=== PATIENT | male | born 1985 | race Caucasian/White ===

== ENCOUNTER → 2017-11-12 01:34 | Outpatient (CLI) | payer BC, SELFPAY ==
--- NOTE | 2017-11-12 08:00 | HOLTER_ITS ---
DATE OF STUDY: NOVEMBER 12, 2017 DATE OF DICTATION: NOVEMBER 18, 2017 HOLTER REPORT INDICATIONS: Bradycardia FINDINGS: The patient was monitored for one day and three minutes. The baseline rhythm was sinus rhythm. Average heart rate 67 beats per minute, range 35 to 161 beats per minute. There was no significant ectopy, 2 PVCs and 5 PACs. There were 15 atrial runs. Some of these runs actually represent sinus tachycardia. There was no ventricular tachycardia. Bradycardia occurred mainly at night. There were no pauses greater than 3 seconds. There was no higher degree heart block. There were no symptoms reported. INTERPRETATION: Minor arrhythmias, asymptomatic.
== END ==
PROVIDERS: PCP Nurse Practitioner; Visit Provider Nurse Practitioner
DX: R00.1 Bradycardia, unspecified (principal); R00.0 Tachycardia, unspecified; I49.1 Atrial premature depolarization; I49.3 Ventricular premature depolarization
CPT/HCPCS: 93225

== ENCOUNTER → 2017-11-16 08:11 | Outpatient (REF) | payer BC, SELFPAY | LOC: RT 08:11 | PROVIDERS: PCP Nurse Practitioner; Visit Provider Nurse Practitioner | DX: R00.1 Bradycardia, unspecified (principal); R00.0 Tachycardia, unspecified; I49.1 Atrial premature depolarization; I49.3 Ventricular premature depolarization | CPT/HCPCS: 93226 ==

== ENCOUNTER 2021-01-22 09:13 | Outpatient (REF) | payer OTHER, SELFPAY ==
[2021-01-22 15:39] LABS: ALT 63 U/L (16-63); AST 24 U/L (15-37); Calculated LDL 81 mg/dL (<100); Cholesterol 163 mg/dL (<200); HDL Cholesterol 34 mg/dL (40-60); Triglyceride 244 mg/dL (<150)
== END 2021-01-22 09:14 | disposition home or self-care (01) ==
LOC: NCHCN 09:13
PROVIDERS: PCP Nurse Practitioner; Visit Provider Nurse Practitioner Family
DX: R03.0 Elevated blood-pressure reading, without diagnosis of hypertension (principal); R00.1 Bradycardia, unspecified; E66.9 Obesity, unspecified
CPT/HCPCS: 80061; 84450; 84460

== ENCOUNTER 2021-10-21 17:39 | Outpatient (REF) | payer BC, SELFPAY ==
[2021-10-21 19:46] LABS: Abs Immature Grans 0.03 10^3/uL (0.0-0.06); Absolute Basophil Count 0.03 10^3/uL (0.0-0.2); Absolute Lymphocyte Count 2.37 10^3/uL (1.2-3.4); Absolute Monocyte Count 0.41 10^3/uL (0.1-0.8); Basophils % 0.5; Eosinophils % 1.6; HCT 46.2 % (40.0-50.0); HGB 15.8 g/dL (13.5-17.5); Immature Grans % 0.5; Lymphocytes % 36.8; MCH 27.5 pg (27.0-33.0); MCHC 34.2 % (32.0-36.0); MCV 81 fL (80-95); MPV 9.7 fL (8.0-11.0); Monocytes % 6.4; Neutrophils % 54.2; Platelet Count 316 10^3/uL (130-400); RBC 5.74 10^6/uL (4.36-5.78); RDW 12.4 % (11.8-14.1); RDW-SD 35.8 fL; WBC 6.44 10^3/uL (4.4-10.8)
[2021-10-21 20:13] LABS: Anion Gap 8.7 mmol/L (3-11); BUN 13 mg/dL (7-18); CO2 28.3 mmol/L (21.0-32.0); Calcium 9.5 mg/dL (8.5-10.1); Chloride 103 mmol/L (98-107); Glucose 96 mg/dL (74-106); Potassium 4.5 mmol/L (3.5-5.1); Sodium 140 mmol/L (136-145); Uric Acid 7.7 mg/dL (3.5-7.2)
== END 2021-10-21 17:40 | disposition home or self-care (01) ==
LOC: NCHCN 17:39
PROVIDERS: PCP Nurse Practitioner; Visit Provider Family Medicine
DX: M10.9 Gout, unspecified (principal)
CPT/HCPCS: 80048; 84550; 85025

== ENCOUNTER 2022-01-08 07:53 | Outpatient (REF) | payer BC, SELFPAY ==
[2022-01-08 16:58] LABS: Anion Gap 7.6 mmol/L (3-11); BUN 14 mg/dL (7-18); CO2 29.4 mmol/L (21.0-32.0); CREATININE 1.1 mg/dL (0.70-1.30); Calcium 9.4 mg/dL (8.5-10.1); Chloride 105 mmol/L (98-107); Estimated GFR 90.34 (mL/min/1.73m2); Glucose 95 mg/dL (74-106); Potassium 4.7 mmol/L (3.5-5.1); Sodium 142 mmol/L (136-145)
== END 2022-01-08 07:54 | disposition home or self-care (01) ==
LOC: NCHCN 07:53
PROVIDERS: PCP Nurse Practitioner; Visit Provider Nurse Practitioner Family
DX: E66.9 Obesity, unspecified (principal); R03.0 Elevated blood-pressure reading, without diagnosis of hypertension
CPT/HCPCS: 80048; 84550

== ENCOUNTER 2023-01-20 19:13 | Outpatient (REF) | payer BC, SELFPAY ==
[2023-01-20 15:07] LABS: HCT 45.9 % (40.0-50.0); HGB 16.1 g/dL (13.5-17.5); MCH 28.5 pg (27.0-33.0); MCHC 35.1 % (32.0-36.0); MCV 81 fL (80-95); MPV 9.9 fL (8.0-11.0); Platelet Count 246 10^3/uL (130-400); RBC 5.64 10^6/uL (4.36-5.78); RDW 12.4 % (11.8-14.1); RDW-SD 36.3 fL
[2023-01-20 15:21] LABS: ALT 44 U/L (16-63); AST 24 U/L (15-37); Albumin 4.3 g/dL (3.4-5.0); Alkaline Phosphatase 65 U/L (46-116); Anion Gap 8.3 mmol/L (3-11); BUN 14 mg/dL (7-18); CO2 28.7 mmol/L (21.0-32.0); Calcium 9.6 mg/dL (8.5-10.1); Chloride 105 mmol/L (98-107); Estimated GFR 100.66 (mL/min/1.73m2); Glucose 87 mg/dL (74-106); Potassium 4.5 mmol/L (3.5-5.1); Sodium 142 mmol/L (136-145); Total Protein 7.2 g/dL (6.4-8.2); Uric Acid 6.8 mg/dL (3.5-7.2)
== END 2023-01-20 19:14 | disposition home or self-care (01) ==
LOC: NCHCN 19:13
PROVIDERS: PCP Nurse Practitioner; Visit Provider Nurse Practitioner Family
DX: Z00.00 Encounter for general adult medical examination without abnormal findings (principal); M10.9 Gout, unspecified
CPT/HCPCS: 80053; 85027; 84550

== ENCOUNTER 2024-01-22 15:42 | Outpatient (REF) | payer BC, SELFPAY ==
[2024-01-22 15:39] LABS: HCT 48.9 % (40.0-50.0); HGB 16.5 g/dL (13.5-17.5); MCHC 33.7 % (32.0-36.0); MCV 83 fL (80-95); MPV 9.7 fL (8.0-11.0); Platelet Count 256 10^3/uL (130-400); RDW 12.1 % (11.8-14.1); RDW-SD 36.5 fL; WBC 5.76 10^3/uL (4.4-10.8)
--- OUTSIDE RECORDS SUMMARY | 2024-01-22 15:44 | XMS_ITS | Clinical Summary ---
[place] [address] Care Team Providers Care Opto Mechanical Technician Name Role Phone Gina Harley APRN Primary Care Provider [phone] Allergies No known active allergies Medications No known medications Active Problems No known active problems Immunizations Name Administration Dates Next Due Tuberculin Skin Test, PPD 09/22/2005 Social History Tobacco Use Types Packs/Day Years Used Date Smoking Tobacco: Never Assessed Sex and Gender Information Value Date Recorded Sex Assigned at Not on file Gender Identity Not on file Sexual Orientation Not on file Plan of Treatment Health Maintenance Due Date Last Done Comments HIV screen 2005 Hepatitis C Screening 2005 Lipid Screening 2005 Hepatitis B vaccine (0-59 yrs) (1) 2006 Tetanus/Diphtheria/Pertussis Vaccines (1 - Tdap) 04/17 Covid-19 Vaccine (1 - season) 2023 Influenza (Flu) vaccine (1 o f 1 - Influenza standard series) 12/13/2023 Care Teams Opto Mechanical Technician Relationship Specialty Start Date End Date Gina Harley APRN [address] [place] [address] PCP - General Family Medicine 03/19/21
--- OUTSIDE RECORDS SUMMARY | 2024-01-22 15:44 | XMS_ITS | Encounter Summary ---
Author Organization [facility] [place] [address] Care Team Providers Care Formula Clerk Name Role Phone Gina Harley APRN Primary Care Provider [phone] Reason for Visit * Reason Comments Skin Check * Consultation (Routine) - Closed Specialty Diagnoses / Procedures Referred By Billie ceja Referred To Contact Dermatology Diagnoses Other specified disorders of the skin and subcutaneous tissue Skin Lesions Procedures Consult Gina Harley APRN [address] [place] [address] [facility] [address] [place] [address] Referral ID Status Reason Start Date Expiration Date Visits Re quested Visits Authorized [id number] Closed 01/18/2021 01/18/2022 1 1 Encounter Details Date Type Department Care Team (Late st Contact Info) Description 03/19/2021 2:00 PM EST Office Visit Dermatology at [facility] [address] [place] [address] Pepito Marks MD [facility] [place] [address] Capps angioma; Multiple benign nevi; Solar lentiginosis Social History Tobacco Use Types Packs/Day Years Used Date Smoking Tobacco: Never Assessed Sex and Gender Information Value Date Recorded Sex Assigned at Not on file Gender Identity Not on file Sexual Orientation Not on file documented as of this encounter Progress Notes * Pepito Marks MD - 03/19/2021 2:00 PM EST Images from the original note were not included. DEPARTMENT OF DERMATOLOGY Medical Dermatology Clinic Note Provider: Pepito Marks MD Patient's preferred name Slava Preferred contact method for results []myDH []Letter []Phone: Y Detailed phone message OK? Y Are there any other people with whom we may discuss your care? Y PAST MEDICAL HISTORY If no, type N. If yes, type date, location, treatment Melanoma N Dysplastic nevi Mildly Atypical (2) SCC N BCC N AKs N UV Exposure & Protection N Other relevant past medical history (i.e. eczema, psoriasis, birthmarks, immunosuppression) N FAMILY HISTORY If yes, details Melanoma N NMSC N Other relevant family history N SOCIAL HISTORY Occupation: accounting exec Hobbies: sports PRE-PROCEDURE SCREENING If no, type N. If yes, include details below Allergy to lidocaine, epinephrine, Dermabond, chlorhexidine, or adhesives: N Bleeding disorder or blood thinners: N Implanted devices (Pacemaker, defibrillator, deep brain stimulator, cochlear implant): N History of Present Illness: Cesar Jolly is a 35 y.o. year old. Patient is referred to the clinic atthe request of Gina Harley for the following concerns: - He notes that he had two moles biopsied on his back ~5 years ago in [facility] by an outside marketing agent. Both of the biopsy scars have since developed focal areas of re-pigmentation. Both areas are asymptomatic. - He notes a bump on his right upper forehead at his hairline that is asymptomatic. He would like to make sure that it looks ok. - Otherwise, no areas of concern. Review of Systems: General: Feeling well. Skin: No other skin concerns. Medications: Reviewed in eD-H Allergies: Reviewed in eD-H Skin Examination: Waist-up skin examination: Patient was asked to disrobe to the level of their comfort. Patient elected to remain clothed below the waist. Examination of the scalp, hair, face, ears, neck, back, chest, abdomen, and upper extremities was normal with the exception of the findings listed below. Assessment/Plan #. 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 - Reviewed biopsy results in detail and discussed significance of recurrence. - There are no concerning features for more atypical behavior given focal areas of recurrence within well healed scars. - Discussed options of re-biopsy and excision. - After reviewing risks/benefits, joint decision to clinically monitor lesions for change. Instructed patient to return to clinic for changes or concerns. #. 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 Benign Nevi - Scattered medium-brown macules and papules on the trunk and extremities. - Reassured of benign appearance on exam today. -including a raised mole on the right frontal scalp X1, a mole on the left antihelix X1 - Reviewed ABCDEs of melanoma - Recommend daily sun protection with protective clothing and SPF 30+ #. Solar lentigines EXAM: concentrated in sun-exposed areas (distal upper and lower extremities, shoulders, face), there are numerous, light brown macules with moth-eaten borders and homogeneous pigmentation. - Association with prior sun-exposure reviewed. - Recommend daily photoprotection with minimum SPF 30 or above, reapplied every 2 hours. Photo was taken and charted with patient's verbal consent. Other items to document in the assessment/plan if relevant ??? N/A RTC: 1 year skin exam Scribe attestation: Vikki Mosher [facility] who has performed the documentation for this encounter in the presence of and acting as a scribe for Pepito Marks MD. I performed the above scribed service and agree with the accuracy of the documentation in this encounter. Reviewed and signed by: Pepito Marks MD Dermatology [facility] Patient seen and evaluated with staff marketing agent: Elham Amanda MD Department of Dermatology [facility] * Elham Amanda MD - 03/19/2021 2:00 PM EST I directly supervised Dr. Marks during this office visit. Dr. Marks presented the history and physical exam to me. I then saw and examined this patient with Dr. Marks . We reviewed the history and pertinent details and I confirmed the physical findings. I agree with the details of the history and physical exam as documented in Dr. Marks's note. ELHAM AMANDA MD Staff Physician documented in this encounter Plan of Treatment Not on file documented as of this encounter Visit Diagnoses Diagnosis Capps angioma Nevus, non-neoplastic Multiple benign nevi Benign neoplasm of skin, site unspecified Solar lentiginosis Other dyschromia documented in this encounter Care Teams Formula Clerk Relationship Specialty Start Date End Date Gina Harley APRN [address] [place] [address] PCP - General Family Medicine 03/19/21 documented as of this encounter
[2024-01-22 16:05] LABS: ALT 76 U/L (16-63); AST 33 U/L (15-37); Albumin 4.3 g/dL (3.4-5.0); Alkaline Phosphatase 70 U/L (46-116); Anion Gap 8.3 mmol/L (3-11); BUN 11 mg/dL (7-18); Bilirubin, Total 1.01 mg/dL (0.2-1.0); CO2 29.7 mmol/L (21.0-32.0); CREATININE 1.1 mg/dL (0.70-1.30); Calcium 9.5 mg/dL (8.5-10.1); Calculated LDL 80 mg/dL (<100); Chloride 107 mmol/L (98-107); Cholesterol 145 mg/dL (<200); Estimated GFR 89.22 (mL/min/1.73m2); Glucose 87 mg/dL (74-106); HDL Cholesterol 39 mg/dL (40-60); Potassium 4.7 mmol/L (3.5-5.1); Sodium 145 mmol/L (136-145); Total Protein 7.1 g/dL (6.4-8.2); Triglyceride 132 mg/dL (<150)
[2024-01-22 16:40] LABS: Uric Acid 6.5 mg/dL (3.5-7.2)
== END 2024-01-22 15:43 | disposition home or self-care (01) ==
LOC: NCHCN 15:42
PROVIDERS: Visit Provider Nurse Practitioner Family
DX: Z00.00 Encounter for general adult medical examination without abnormal findings (principal); M10.9 Gout, unspecified
CPT/HCPCS: 80053; 80061; 85027; 84550

== ENCOUNTER 2025-01-25 10:27 | Outpatient (REF) | payer OTHER, SELFPAY ==
[2025-01-25 15:11] LABS: HCT 46.6 % (40.0-50.0); HGB 16.1 g/dL (13.5-17.5); MCH 28.5 pg (27.0-33.0); MCHC 34.5 % (32.0-36.0); MCV 83 fL (80-95); MPV 9.6 fL (8.0-11.0); Platelet Count 254 10^3/uL (130-400); RBC 5.64 10^6/uL (4.36-5.78); RDW 12.4 % (11.8-14.1); RDW-SD 37.3 fL; WBC 5.32 10^3/uL (4.4-10.8)
[2025-01-25 15:21] LABS: ALT 105 U/L (16-63); AST 42 U/L (15-37); Albumin 4.1 g/dL (3.4-5.0); Alkaline Phosphatase 66 U/L (46-116); Anion Gap 7.9 mmol/L (3-11); BUN 11 mg/dL (7-18); Bilirubin, Total 0.9 mg/dL (0.2-1.0); CO2 29.1 mmol/L (21.0-32.0); Calcium 9.1 mg/dL (8.5-10.1); Chloride 105 mmol/L (98-107); Estimated GFR 99.41 (mL/min/1.73m2); Glucose 92 mg/dL (74-106); Potassium 4.6 mmol/L (3.5-5.1); Sodium 142 mmol/L (136-145); Total Protein 6.5 g/dL (6.4-8.2); Uric Acid 7.1 mg/dL (3.5-7.2)
== END 2025-01-25 10:28 | disposition home or self-care (01) ==
LOC: NCHCN 10:27
PROVIDERS: PCP Nurse Practitioner Family; Visit Provider Nurse Practitioner Family
DX: M10.9 Gout, unspecified (principal); Z00.00 Encounter for general adult medical examination without abnormal findings
CPT/HCPCS: 80053; 85027; 84550